=== PATIENT | female | born 1965 | race Caucasian/White ===

== ENCOUNTER → 2020-07-21 | Outpatient (CLI) | payer OTHER | LOC: SC 19:30 | PROVIDERS: ATTEND Internal Medicine Pulmonary Disease | DX: G47.33 Obstructive sleep apnea (adult) (pediatric) (principal) | CPT/HCPCS: 95806 ==

== ENCOUNTER 2020-08-02 13:10 | Outpatient (CLI) | payer OTHER ==
--- NOTE | 2020-08-02 13:39 | SLEEP CARE CONSULTATION ---
Information from patient questionnaire entered by Yolanda Bull. I have reviewed and concur with the information entered by Yolanda Bull. This document represents the service I personally performed and the decisions made by me, Rosa Isela Almeida ARNP. History of Present Illness Service Date and Time: 08/02/2020 1310 Initial [place] Sleepiness Scale score: 13 (in 2020) Current Austin Sleepiness Scale score: 14 Additional HPI information: FANY MIN returns for follow up and results of the recently performed home sleep study. She was found to have mild obstructive sleep apnea with an AHI of 6.8 and a tiffany oxygen saturation of 78.1%. Her supine AHI was 6.8 and her non-supine AHI was 6.8. I explained the pathophysiology behind obstructive sleep apnea. We then spent quite a bit of time discussing different treatment options. For mild obstructive sleep apnea, surgery and oral appliance are alternatives to nasal CPAP therapy but in moderate or severe cases, nasal CPAP is the most effective and reliable treatment. After some discussion, the patient opted to go with the nasal CPAP therapy. Nasal autoCPAP set at 4-15 cmH20 will be ordered with rationale explained. A manual titration study will be ordered if unable to find optimal pressure with office adjustments. I explained how CPAP machine works with sample devices [employer] and [id number] and what to expect when using the machine. Using CPAP every night in order to get used to it was emphasized. Patient advised to put CPAP mask on before getting into bed so as not to fall asleep without CPAP. To assist acclimation to CPAP use, it could also be used for a short time during day while reading or watching TV. The patient was instructed to call the CPAP supplier to discuss any mechanical problem that may occur. If the mask given is uncomfortable or is difficult to keep on through the night even with adjustment, contact the CPAP supplier as many will replace with another mask style if notified before 30 days. If snoring or perceives is not getting enough air or too much air from the machine, notify this office. AASM patient education PAP tips given to patient for review. Patient counseled not drink alcohol less than 4 hours before bedtime as it can increase snoring and apnea. Patient was cautioned about risks of drowsy driving until sleepiness symptoms resolve. Sleep Study - Results Type of Sleep Study: Home sleep study Prior sleep studies: No Polysomnography/Home Sleep Study results: SLEEP TIME AND EFFICIENCY: The sleep study recording began at 08:17:32 PM and ended at 04:47:25 AM. Total recording time was 509.9 minutes. The total sleep time was 461.5 minutes. The sleep efficiency was 90.5 percent. The patient spent 399.6 minutes supine, and spent 61.9 minutes non-supine. The patients own estimate of sleep time was 6.00 hours. RESPIRATORY DATA: The AHI in this report is indexed to sleep time based on actigraphy. The AASM defines this as BRENDA. The AHI on this type 3 Home Sleep Study may understate the AHI determined on a type 1 or 2 study, since EEG is not monitored resulting in the inability to score non-desaturating hypopneas. Based on 4% Calculation: The AHI4% calculation of 6.8 per hour of recording time was based on a total of 35 scored apneas and 17 scored hypopneas with 4% desaturations. Supine AHI4%: 6.8 per hour. Non-supine AHI4%: 6.8 per hour. Oxygen Summary: Patient's baseline O2 saturation was 95.6 %. The patient spent 4.8 minutes at an oxygen saturation less than 90%, and 0.8 minutes less than 85%. The desaturation index was 6.9 events per hour sleep time. The lowest saturation was 78.1 %. SNORING: The percent of the study time spent snoring was 0.0 %. The Snoring Count was 2 . The Snoring Index was 0.3 . PULSE RATE REVIEW: The mean heart rate was 79 beats per minute. The rate ranged from a low of 46 to a high of 105 beats per minute. Allergies and Home Medications Drug allergies reviewed: Yes (NKDA) Home medication list reviewed: Yes (no changes) Review of Systems Review of systems same as previous: Yes (no changes) Physical Exam Heart Rate: 79 O2 Saturation: 97 Height: 5 ft 7 in Weight: 125 lb Body Mass Index: 19.5 BMI Classification: Healthy weight Impression and Plan 1. Obstructive Sleep Apnea-Hypopnea Syndrome, mild, with lowest oxygen saturation of 78.1%. Obviously this is the cause of the patients symptoms of unrefreshed sleep, and excessive daytime sleepiness. Positive pressure therapy could benefit her overall health and reduce cardiovascular and cerebrovascular risks. As mentioned above, the patient will be started on nasal autoCPAP therapy with pressure set at 4-15 cmH2O. Compliance guidelines also reviewed. A copy of compliance guidelines will be given for reference at check out. * Nasal auto CPAP therapy, pressure at 4-15 cm H2O. * Attempt to lose weight. * Avoid alcohol consumption near bedtime. * The patient is again cautioned about driving until sleepiness completely resolves. * Return one month after CPAP obtained. I will assess response to therapy and compliance at that time. Visit Type: In Office Time Spent with Patient (minutes): 16 Provider Statement: I spent 100% of the Face to Face Visit with the patient with greater than 50% spent counseling the patient and coordination of care.
== END 2020-08-02 13:11 | disposition home or self-care (01) ==
LOC: SC 13:10
PROVIDERS: ATTEND Nurse Practitioner Family
DX: G47.33 Obstructive sleep apnea (adult) (pediatric) (principal)
CPT/HCPCS: 99212; 99213

== ENCOUNTER 2020-11-13 09:18 | Outpatient (CLI) | payer OTHER ==
--- NOTE | 2020-11-13 09:50 | SLEEP CARE CONSULTATION ---
Information from patient questionnaire entered by Alma Rossi. I have reviewed and concur with the information entered by Alma Rossi. This document represents the service I personally performed and the decisions made by me, Rosa Isela Almeida ARNP. History of Present Illness Service Date and Time: 11/13/2020917 Previous diagnosis: Mild, Obstructive Sleep Apnea-Hypopnea Syndrome AHI: 6.8 (in 2019) Reason for follow up: first compliance Equipment type: CPAP Equipment obtained from: [employer] (did not feel supported by [employer], supplies slow to get) Mask style: Full face Backup mask available: Yes (other mask) Prior sleep studies: Yes Year and Where: 2019 - [facility] Type of Sleep Study: Home sleep study HPI additional information: FANY MIN was diagnosed to have mild, AHI 6.8, obstructive sleep apnea-h ypopnea syndrome and returned today for CPAP therapy first compliance follow-up. CPAP Compliance Data Compliance data discussion: She has claustrophobia and wearing the mask has been increasing her anxiety. She is not being able to sleep with it because she cannot breath out. She has tried to lay in bed with mask on but was unable to go to sleep. She was adjusted down to lowest pressure setting but was still unable to tolerate pressure and be able to sleep. She visited her son and only used breathe strips. Her son told her she did not snore when using them. She has been using them for the last month. She has not been using her CPAP machine and would like to discontinue therapy. Subjective Missed days of use due to: reports: other (can't use) Patient concerns: reports: dry mouth, nose, throat, other (can't breath) Current pressure setting perceived as: too high On therapy, patient: denies: sleeping better, awakening more refreshed, being more awake and alert during the day, more rested overall, drowsiness while driving Initial [place] Sleepiness Scale score: 13 (in 2019) Current [place] Sleepiness Scale score: 3 Allergies and Home Medications Drug allergies reviewed: Yes (NKDA) Home medication list reviewed: Yes (no changes) Review of Systems Review of systems same as previous: Yes (no changes) Physical Exam Heart Rate: 80 O2 Saturation: 90 Height: 5 ft 7 in Weight: 126 lb Body Mass Index: 19.7 BMI Classification: Healthy weight Impression and Plan 1. Obstructive Sleep Apnea-Hypopnea Syndrome, mild, with no information on compliance since she has not been using the CPAP machine. Patient has not been able to tolerate the CPAP therapy even at the lowest pressure settings. Patient would like to discontinue CPAP therapy. Patient does have mild apnea. She also states that she does not think she slept more than 2 hours during the HST. She had just been diagnosed with hypothyroidism. She is not sure the sleep study was accurate and is not tolerating CPAP treatment. I discussed other options like positional or oral appliance therapy. She would like to explore the option of an oral appliance and its costs to her. A list of certified dentist in the area was give to patient by the discharge staff. Patient will call to set up her follow up. Patient's apnea severity and rationale for treatment to reduce apnea, improve sleep quality and reduce cardiovascular and cerebrovascular events was reviewed. * Discontinue CPAP therapy * Follow up with dentist to explore option of using an oral appliance for sleep apnea. * Notify me if snoring with mask or feeling that the pressure is too much or too little * Call this office if any problems using CPAP * Return for follow up after obtaining oral appliance for evaluation of effectiveness. Visit Type: In Office Time Spent with Patient (minutes): 22 Provider Statement: I spent 100% of the Face to Face Visit with the patient with greater than 50% spent counseling the patient and coordination of care.
== END 2020-11-13 09:19 | disposition home or self-care (01) ==
LOC: SC 09:18
PROVIDERS: ATTEND Nurse Practitioner Family
DX: G47.33 Obstructive sleep apnea (adult) (pediatric) (principal)
CPT/HCPCS: 99212; 99213

== ENCOUNTER 2021-01-07 11:58 | Outpatient (CLI) | payer OTHER ==
--- NOTE | 2021-01-09 12:00 | Mammography Report ---
BILATERAL DIGITAL DIAGNOSTIC MAMMOGRAM 3D/2D: 01/07/2021 CLINICAL: Diffuse right breast pain since surgery. Comparison is made to exams dated: 01/02/2012 mammogram, 07/08/2011 mammogram, 09/05/2009 mammogram, and 03/01/2007 mammogram - [facility]. The tissue of both breasts is heterogeneously dense. This may lower the sensitivity of mammography. No significant masses, calcifications, or other findings are seen in either breast. There are stable post treatment changes in the right breast. IMPRESSION: INCOMPLETE: NEEDS ADDITIONAL IMAGING EVALUATION There is no abnormality seen in the right breast to correspond with the area of clinical concern, pal pable abnormality, and pain in the posterior depth in the upper outer quadrant near the vicinity of p revious surgical site. However, an ultrasound is recommended for further evaluation and is scheduled to immediately follow this examination. This exam was interpreted at Station ID: [id number]. NOTE: For mammograms, a report in lay terms will be sent to the patient. Approximately 15% of breast malignancies will not be visualized mammographically. In the management of a palpable breast mass, a negative mammogram must not discourage biopsy of a clinically suspicious lesion. Electronically Signed By: Tyree Cole M.D. aty/:01/07/2021 17:17:16 ACR BI-RADS Category 0: Incomplete 3340F PARENCHYMAL PATTERN: (D) - The breast(s) demonstrate(s) heterogeneously dense fibroglandular sybil ricketts. BI-RADS CATEGORY: (0) - 0 Ultrasound [id number] Immediate follow-up LATERALITY: (R)
--- NOTE | 2021-01-09 12:00 | Ultrasound Report ---
LIMITED ULTRASOUND OF RIGHT BREAST: 01/07/2021 CLINICAL: Diffuse right breast pain. Post right lumpectomy. Comparison is made to exams dated: 01/07/2021 mammogram - [facility], 01/02/2012 mammo gram, 01/02/2012, 07/08/2011 mammogram, 07/08/2011, and 09/05/2009 mammogram - [facility]. Real-time ultrasound of the right breast upper outer quadrant was performed. Woods scale images of th e real-time examination were reviewed. No significant abnormalities were seen sonographically in the right breast. IMPRESSION: NEGATIVE There is no sonographic evidence of malignancy. There is no abnormality seen in the right breast to correspond with the area of clinical concern, pal pable abnormality, and pain in the upper outer quadrant, however, recommend clinical follow up for pe rsistent or worsening symptoms, or development of any clinically suspicious findings. A 1 year screening mammogram is recommended. Findings and recommendations were conveyed to the patient during today's evaluation. This exam was interpreted at Station ID: [id number]. Electronically Signed By: Tyree Cole M.D. aty/:01/07/2021 17:18:45 Ultrasound BI-RADS: 1 Negative BI-RADS CATEGORY: (1) - 1 RECOMMENDATION: (ANNUAL) - Recommend routine annual screening mammography. [id number] 1 year screening LATERALITY: (B)
== END 2021-01-07 11:59 | disposition home or self-care (01) ==
LOC: DI 11:58
PROVIDERS: ATTEND Internal Medicine
DX: Z12.31 Encounter for screening mammogram for malignant neoplasm of breast (principal); R92.8 Other abnormal and inconclusive findings on diagnostic imaging of breast

== ENCOUNTER 2023-09-01 08:12 | Outpatient (CLI) | payer OTHER ==
--- NOTE | 2023-09-01 12:25 | DEXA Report ---
PROCEDURE: Dexa Spine and/or Hip INDICATIONS: POST MENOPAUSAL TECHNIQUE: Dual energy x-ray absorptiometry (DXA) was performed on a [employer] System. Regions measur ed are the AP Spine, femoral neck, and if needed forearm. COMPARISON: None FINDINGS: Lumbar Spine: Bone Mineral Density 1.193 g/cm/cm,T score -0.1. Left Femoral Neck: Bone Mineral Density 0.675 g/cm/cm, T score -2.6. Left Hip: Bone Mineral Density 0.7 g/cm/cm,T score -2.4. Left Forearm: Bone Mineral Density 0.534 g/cm/cm, T score -2.3. (T score greater or equal to -1.0: NORMAL) (T score from -1.1 to -2.4: OSTEOPENIA) (T score less than or equal to -2.5 to: OSTEOPOROSIS) Impression: By WHO criteria, this patient has osteoporosis. Patients with diagnosis of osteoporosis or osteopenia should have regular bone mineral density assess ment. For those eligible for Medicare, routine testing is allowed once every 2 years. Testing frequ ency can be increased for patients who have rapidly progressing disease or for those who are receivin g medical therapy to restore bone mass. Reviewed by: Keith Fang on 09/01/2023 12:24 PM PDT Approved by: Keith Fang on 09/01/2023 12:24 PM PDT Station ID: [id number]
== END 2023-09-01 08:13 | disposition home or self-care (01) ==
LOC: DI 08:12
PROVIDERS: ATTEND Internal Medicine
DX: N95.8 Other specified menopausal and perimenopausal disorders (principal); M81.0 Age-related osteoporosis without current pathological fracture